=== PATIENT | male | born 1995 | race Two or more races ===

== ENCOUNTER 2020-11-19 03:00 | Emergency (ER) | payer SELFPAY ==
[2020-11-19] MEDS ORDERED: HYDROcodone/APAP 5/325MG 1 TAB TABLET PO ONE (04:48)
[2020-11-19] MEDS ORDERED: HYDROcodone/APAP 5/325MG 1 TAB TABLET ONE (04:55)
--- NOTE | 2020-11-19 08:24 | RAD ---
XR FOOT_RIGHT 3 VIEWS History: Foot pain. Comparison: None. Technique: 3 views of the right foot. Findings: Osseous mineralization is normal. No fracture or dislocaton. No significant degenerative changes. Sof t tissues are unremarkable. Impression: 1. No acute osseous abnormality of the right foot. Electronically signed by: Salvador Blackwood MD (11/19/2020 8:21 AM) [id number]
== END 2020-11-19 05:07 | disposition home or self-care (01) ==
LOC: ER 03:00
DX: S93.601A Unspecified sprain of right foot, initial encounter (principal); W10.8XXA Fall (on) (from) other stairs and steps, initial encounter; Y93.02 Activity, running; Y92.89 Other specified places as the place of occurrence of the external cause; Y99.8 Other external cause status
CPT/HCPCS: 73630; 99283